=== PATIENT | male | born 1990 | race Hispanic/Latino ===

== ENCOUNTER 2017-12-08 09:01 | Emergency (ER) | payer OTHER ==
[2017-12-08 09:20] VITALS: BP 127/84
[2017-12-08] MEDS ORDERED: MOTRIN 600 MG PO ONE (09:52)
--- NOTE | 2017-12-08 09:52 | ERPHSYRPT ---
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 pt is not allergic to any medications and is not taking any medications. pts last tetanus injection was 2 years ago. Method of Injury: direct blow (by hydrogen power plant manager) Occurred: just prior to arrival, this morning Quality: aching, throbbing Severity of Pain-Max: moderate Severity of Pain-Current: moderate Lower Extremities Pain: foot: right Modifying Factors: Improves With: movement (worsens) Associated Symptoms: other (hurts to bear weight) Allergies/Adverse Reactions: No Known Drug Allergies Allergy (Unverified 12/08/17 09:24) Hx Tetanus, Diphtheria Vaccination/Date Given: Yes (2 years ago) Hx Influenza Vaccination/Date Given: No Hx Pneumococcal Vaccination/Date Given: No Immunizations Up to Date: Yes - Review of Systems Constitutional: No Symptoms, No Fever Eyes: No Symptoms, No Eye Pain Ears, Nose, & Throat: No Symptoms, No Ear Pain Respiratory: No Symptoms, No Cough, No Dyspnea, No Stridor, No Wheezing Cardiac: No Symptoms, No Chest Pain Abdominal/Gastrointestinal: No Symptoms, No Abdominal Pain, No Nausea, No Vomiting, No Diarrhea Genitourinary Symptoms: No Symptoms, No Dysuria, No Frequency, No Hematuria Musculoskeletal: Other (right foot pain) Skin: Other (laceration right foot dorsal aspect) Neurological: No Symptoms, No Dizziness Psychological: No Symptoms, No Alcohol Abuse, No Drug Abuse, No Anxiety Endocrine: No Symptoms Hematologic/Lymphatic: No Symptoms Immunological/Allergic: No Symptoms All Other Systems: Reviewed and Negative - Past Medical History Pertinent Past Medical History: Yes Neurological History: No Pertinent History ENT History: No Pertinent History Cardiac History: No Pertinent History Respiratory History: No Pertinent History Endocrine Medical History: No Pertinent History Musculoskeletal History: No Pertinent History GI Medical History: No Pertinent History History: No Pertinent History Psycho-Social History: No Pertinent History Male Reproductive Disorders: No Pertinent History - Past Surgical History Past Surgical History: No Neuro Surgical History: No Pertinent History Cardiac: No Pertinent History Respiratory: No Pertinent History Gastrointestinal: No Pertinent History Genitourinary: No Pertinent History Musculoskeletal: No Pertinent History Male Surgical History: No Pertinent History - Social History Smoking Status: Current every day smoker Exposure to second hand smoke: Yes Drug Use: none Patient Lives Alone: No - Nursing Vital Signs Nursing Vital Signs: Initial Vital Signs Temperature 99.2 F 12/08/17 09:17 Pulse Rate 94 H 12/08/17 09:17 Respiratory Rate 16 12/08/17 09:17 Blood Pressure 127/84 12/08/17 09:17 O2 Sat by Pulse Oximetry 98 12/08/17 09:17 Pain Scale Pain Intensity 6 - Physical Exam General Appearance: mild distress, alert Eyes, Ears, Nose, Throat Exam: normal ENT inspection, TMs normal Neck Exam: normal inspection, non-tender, supple, full range of motion Cardiovascular/Respiratory Exam: chest non-tender, normal breath sounds, regular rate/rhythm, heart sounds normal Gastrointestinal/Abdominal Exam: non-tender, soft, No guarding, No tenderness Back Exam: normal inspection, normal range of motion, No CVA tenderness, No vertebral tenderness Hips Exam: bilateral: non-tender, normal inspection, normal range of motion, no evidence of injury Legs Exam: bilateral leg: non-tender, normal inspection, normal range of motion , no evidence of injury Knees Exam: bilateral knee: non-tender, normal inspection, normal range of motion, no evidence of injury Ankle Exam: bilateral ankle: non-tender, normal inspection, normal range of motion, no evidence of injury Foot Exam: right foot: abrasions/lacerations (0.5cm lac dorsum), bone tenderness , soft tissue tenderness, swelling, bilateral foot: normal range of motion Neuro/Tendon Exam: normal sensation, normal motor functions, normal tendon functions Mental Status Exam: alert, oriented x 3, cooperative Skin Exam: normal color, warm, dry SpO2 Interpretation: normal SpO2: 98 Oxygen Delivery: Room Air Procedures - Laceration/Wound Repair Right Dorsal Foot Wound Location: Right, foot (0.5) Wound's Depth, Shape: superficial Wound Explored: clean Irrigated: No Hibiclens Prep: Yes Wound Repaired With: Veda (one staple) - Course Nursing assessment & vital signs reviewed: Yes Ordered Tests: Active Orders 24 hr Category Date Time Status FOOT (MINIMUM 3 VIEWS) Stat Exams 12/08/17 Ordered Medication Summary Discontinued Medications Generic Name Dose Route Start Last Admin Trade Name Freq PRN Reason Stop Dose Admin Hydrocodone Bitart/Acetaminophen 1 tab 12/08/17 09:53 12/08/17 10:01 [place] 5/325 Mg PO 12/08/17 09:54 1 tab STAT ONE Administration Hydrocodone Bitart/Acetaminophen Confirm 12/08/17 09:59 [place] 5/325 Mg Administered 12/08/17 10:00 Dose 1 tab .ROUTE .STK-MED ONE Cephalexin HCl 500 mg 12/08/17 09:53 12/08/17 10:00 Keflex 500 Mg PO 12/08/17 09:54 500 mg STAT ONE Administration Cephalexin HCl Confirm 12/08/17 09:59 Keflex 500 Mg Administered 12/08/17 10:00 Dose 500 mg .ROUTE .STK-MED ONE Ibuprofen 600 mg 12/08/17 09:52 12/08/17 10:00 Motrin 600 Mg PO 12/08/17 09:53 600 mg STAT ONE Administration Ibuprofen Confirm 12/08/17 09:58 Motrin 600 Mg Administered 12/08/17 09:59 Dose 600 mg .ROUTE .STK-MED ONE Lab/Rad Data: xray no fx aor dislocation. no fb. - Progress Progress: improved Counseled pt/family regarding: diagnosis, rad results - Departure Time of Disposition: 10:36 Departure Disposition: Home Clinical Impression: Laceration of right foot Condition: Stable Critical Care Time: No Additional Instructions: keep clean and dry for 24 hours. after 24 hours, wash daily with soap and water and cover with bandaid. no lotions, ointments or creams. staple removal in 8 days Prescriptions: Hydrocodone/APAP 5/325 [[place] 5/325 mg] 1 each PO Q8H PRN PRN #6 tablet MDD 3 PRN Reason: Pain Cephalexin Mh 500 mg [Keflex 500 mg] 500 mg PO TID #21 capsule
[2017-12-08] MEDS ORDERED: NORCO 5/325 MG PO ONE (09:53)
[2017-12-08] MEDS ORDERED: KEFLEX 500 MG PO ONE (09:53)
[2017-12-08] MEDS ORDERED: MOTRIN 600 MG ONE (09:58)
[2017-12-08] MEDS ORDERED: KEFLEX 500 MG ONE (09:59)
[2017-12-08] MEDS ORDERED: NORCO 5/325 MG ONE (09:59)
[2017-12-08 10:01] VITALS: PULSE 86
--- NOTE | 2017-12-08 10:31 | XRAY ---
Exam: 3 view right foot series from 12/08/2017. Comparison: None. Indication: Right foot injury due to pressure from a machine causing laceration to mid dorsal/side of the right foot. Findings: AP, oblique, and lateral radiographs of the right foot are submitted for evaluation. There is some soft tissue prominence overlying the dorsal aspect of the right forefoot. I see no acute fracture or dislocation. The tarsal-metatarsal junctions align correctly. There appears to be a minimal amount of scattered linear soft tissue air density within the metatarsal region. Correlate clinically. No radiopaque soft tissue foreign body is seen. The joint spaces appear unremarkable. There is a well-corticated calcification adjacent to the distal right fibula which may represent an accessory ossicle or be due to remote trauma. Impression: 1. I see no acute fracture or dislocation of the right foot. 2. However, there appears to be a small amount of linear branching soft tissue air density overlying metatarsal region of the forefoot. There is also mild soft tissue swelling overlying the dorsal aspect of the right forefoot. Correlate clinically.
[2017-12-08 10:34] VITALS: O2SAT 98
== END 2017-12-08 10:57 | disposition home or self-care (01) ==
LOC: ED 09:01
DX: S91.311A Laceration without foreign body, right foot, initial encounter (principal); S90.811A Abrasion, right foot, initial encounter; W45.8XXA Other foreign body or object entering through skin, initial encounter; W22.8XXA Striking against or struck by other objects, initial encounter; Y93.H9 Activity, other involving exterior property and land maintenance, building and construction; Y92.096 Garden or yard of other non-institutional residence as the place of occurrence of the external cause
CPT/HCPCS: 12001; 73630; 99283; A9270-GY

== ENCOUNTER 2017-12-15 20:59 | Emergency (ER) | payer OTHER ==
--- NOTE | 2017-12-15 21:14 | ERPHSYRPT ---
- History of Present Illness Time Seen by Provider: 12/15/17 21:11 Source: patient Exam Limitations: no limitations Physician History: 26 y/o male presents for wound check and single staple removal. 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 i saw this pt then. he has been on antibx keflex for 5 days. he has no complaints. Timing/Duration: week(s) (over one) Quality: other Severity: mild Location: feet (right foot), other Possible Causes: other (wound check) Associated Symptoms: edema (mild ), No fever Allergies/Adverse Reactions: No Known Drug Allergies Allergy (Unverified 12/08/17 09:24) Hx Tetanus, Diphtheria Vaccination/Date Given: Yes (2 years ago) Hx Influenza Vaccination/Date Given: No Hx Pneumococcal Vaccination/Date Given: No - Review of Systems Constitutional: No Symptoms, No Fever Eyes: No Symptoms, No Discharge, No Eye Pain Ears, Nose, & Throat: No Symptoms Respiratory: No Symptoms, No Cough, No Dyspnea on Exertion (HARDIN) Cardiac: No Symptoms, No Chest Pain Abdominal/Gastrointestinal: No Symptoms, No Abdominal Pain, No Nausea, No Vomiting, No Diarrhea Genitourinary Symptoms: No Symptoms Musculoskeletal: No Symptoms Skin: Other (single staple dorsum right foot) Neurological: No Symptoms Psychological: No Symptoms Endocrine: No Symptoms Hematologic/Lymphatic: No Symptoms Immunological/Allergic: No Symptoms All Other Systems: Reviewed and Negative - Past Medical History Pertinent Past Medical History: Yes Neurological History: No Pertinent History ENT History: No Pertinent History Cardiac History: No Pertinent History Respiratory History: No Pertinent History Endocrine Medical History: No Pertinent History Musculoskeletal History: No Pertinent History GI Medical History: No Pertinent History History: No Pertinent History Psycho-Social History: No Pertinent History Male Reproductive Disorders: No Pertinent History - Past Surgical History Past Surgical History: No Neuro Surgical History: No Pertinent History Cardiac: No Pertinent History Respiratory: No Pertinent History Gastrointestinal: No Pertinent History Genitourinary: No Pertinent History Musculoskeletal: No Pertinent History Male Surgical History: No Pertinent History - Social History Smoking Status: Current every day smoker Exposure to second hand smoke: Yes Drug Use: none Patient Lives Alone: No - Physical Exam General Appearance: no apparent distress, alert Eye Exam: PERRL/EOMI, eyes nml inspection Ears, Nose, Throat Exam: normal ENT inspection Neck Exam: normal inspection, non-tender Respiratory Exam: normal breath sounds, lungs clear, airway intact, No chest tenderness, No respiratory distress Cardiovascular Exam: regular rate/rhythm, normal heart sounds, normal peripheral pulses Gastrointestinal/Abdomen Exam: No tenderness Rectal Exam: not done Back Exam: normal inspection, normal range of motion, No CVA tenderness, No vertebral tenderness Extremity Exam: other (laceration site healing with periwound redness. mild localized pus at staple site. 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 take medications as prescribed Prescriptions: Cephalexin Mh 500 mg [Keflex 500 mg] 500 mg PO TID #15 capsule
[2017-12-15 21:20] VITALS: BP 148/97; PULSE 82; O2SAT 100
== END 2017-12-15 21:29 | disposition home or self-care (01) ==
LOC: ED 20:59
DX: Z48.02 Encounter for removal of sutures (principal); L03.115 Cellulitis of right lower limb
CPT/HCPCS: 99283